=== PATIENT | female | born 1955 | race Caucasian/White ===

== ENCOUNTER → 2017-10-22 | Outpatient (CLI) | payer BC ==
--- NOTE | 2017-10-23 08:00 | MM ---
Reason for exam: additional evaluation requested from abnormal screening. Last mammogram was performed less than 1 month ago. History: Patient is postmenopausal and history of other cancer. Benign excisional biopsy of the left breast, 2013. Physical Findings: Nurse Summary: 0.5cm nodule in the right breast at 3:30 (nurse chanelle). MG Work Up Mamm w CAD LT Spot compression CC, spot compression MLO, ML, and LM view(s) were taken of the left breast. Prior study comparison: October 07, 2017, mammogram, performed at [facility]. September 04, 2013, mammogram. The breast tissue is heterogeneously dense. This may lower the sensitivity of mammography. Finding: There is a 5 mm equal density (isodense), indistinct oval mass located 8 cm from the nipple in the 12 o'clock posterior position of the left breast. These results were verbally communicated with the patient and result sheet given to the patient on 10/22/17. ASSESSMENT: Incomplete: need additional imaging evaluation, BI-RAD 0 RECOMMENDATION: Ultrasound of both breasts. Manage on a clinical basis with regard to palpable abnormality.
--- NOTE | 2017-10-23 08:02 | USB ---
Reason for exam: additional evaluation requested from abnormal screening. History: Patient is postmenopausal and history of other cancer. Benign excisional biopsy of the left breast, 2013. US Breast Workup Limited SIMI Right limited breast ultrasound including focal area of concern, retroareolar and axilla demonstrates a 0.4 x 0.2 x 0.4cm lesion too small to characterize at 2 o'clock. Left complete breast ultrasound includes all four quadrants, the retroareolar region and axilla. Finding demonstrates a 0.2 x 0.2 x 0.2cm lesion too small to characterize at 3 o'clock and a 0.3 x 0.3 x 0.3cm lesion too small to characterize at 9 o'clock. These results were verbally communicated with the patient and result sheet given to the patient on 10/22/17. ASSESSMENT: Probably benign, BI-RAD 3 RECOMMENDATION: Follow-up diagnostic mammogram of both breasts in 6 months.
== END | disposition home or self-care (01) ==
LOC: RADMAMWWP 14:18
PROVIDERS: ATTEND Internal Medicine
DX: R92.8 Other abnormal and inconclusive findings on diagnostic imaging of breast (principal)
CPT/HCPCS: 77065

== ENCOUNTER → 2018-03-21 | Outpatient (CLI) | payer BC ==
[2018-03-21 14:21] LABS: Anisocytosis Slight; Basophils # (A) 0.2 k/uL (0-0.2); Basophils % (A) 1 %; Eosinophils # (A) 0.3 k/uL (0-0.7); Eosinophils % (A) 1 %; HCT 40.5 % (34.0-46.0); HGB 13.5 gm/dL (11.4-16.0); Lymphocytes % (A) 47 %; MCH 29.6 pg (25.0-35.0); MCHC 33.2 g/dL (31.0-37.0); MCV 89.2 fL (80.0-100.0); Mean Platelet Volume 6.8; Monocytes # (A) 0.9 k/uL (0-1.0); Monocytes % (A) 4 %; Neutrophils # (A) 9.2 k/uL (1.3-7.7); Neutrophils % (A) 43 %; Platelet Count 468 k/uL (150-450); RBC 4.54 m/uL (3.80-5.40); RDW 16.6 % (11.5-15.5)
[2018-03-21 14:24] LABS: Lymphocytes # (A) 9.9 k/uL (1.0-4.8)
[2018-03-21 14:39] LABS: ALT 34 U/L (9-52); AST 19 U/L (14-36); Anion Gap 8 mmol/L; Blood Urea Nitrogen 16 mg/dL (7-17); C Reactive Protein 15.3 mg/L (<10.0); Calcium 10.1 mg/dL (8.4-10.2); Carbon Dioxide 30 mmol/L (22-30); Chloride 101 mmol/L (98-107); Creatine Kinase 32 U/L (30-135); Glucose 175 mg/dL (74-99); Potassium 4.5 mmol/L (3.5-5.1); Sodium 139 mmol/L (137-145); Uric Acid 5.3 mg/dL (3.7-7.4)
[2018-03-21 14:52] LABS: T4, Free (Free Thyroxine) 0.98 ng/dL (0.78-2.19); WBC 21.1 k/uL (3.8-10.6)
[2018-03-21 18:31] LABS: Erythrocyte Sedimentation Rate 23 mm/hr (0-20)
[2018-03-21 19:52] LABS: Rheumatoid Factor 7 IU/mL (0-15)
[2018-03-21 19:59] LABS: Vitamin D 25 Hydroxy 35.6 ng/mL (30.0-100.0)
[2018-03-21 20:57] LABS: Cyclic Citrullinated Pep IgG NEGATIVE (NEGATIVE)
[2018-03-22 06:50] LABS: Angiotensin-1 Converting Enz. 46 U/L (8-52)
[2018-03-22 13:45] LABS: HLA B27 POSITIVE
== END | disposition home or self-care (01) ==
LOC: LABWHC1 12:02
PROVIDERS: ATTEND Internal Medicine Hematology & Oncology
DX: G56.03 Carpal tunnel syndrome, bilateral upper limbs (principal); M25.531 Pain in right wrist; M25.532 Pain in left wrist; G56.22 Lesion of ulnar nerve, left upper limb
CPT/HCPCS: 36415; 80048; 82164; 82306; 82550; 84439; 84443; 84450; 84460; 84550; 85025; 85652; 86038; 86140; 86200; 86431; 86812

== ENCOUNTER → 2018-11-13 | Outpatient (CLI) | payer BC ==
--- NOTE | 2018-11-13 12:58 | US ---
EXAMINATION TYPE: US abdomen limited DATE OF EXAM: 11/13/2018 COMPARISON: NONE CLINICAL HISTORY: K82.8 Other specified diseases of gallbladder. RUQ pain, nausea and heartburn, gets worse after eating EXAM MEASUREMENTS: Liver Length: 18.2 cm Gallbladder Wall: 0.1 cm CBD: 0.4 cm Right Kidney: 10.1 x 4.5 x 4.6 cm Pancreas: limited by overlying midline bowel gas Liver: enlarged, mildly heterogeneous Gallbladder: wnl Evidence for sonographic Bustos's sign: no CBD: wnl Right Kidney: 2.8 x 2.3 x 2.8cm cystic area superior pole IMPRESSION: 1. The liver is enlarged and heterogeneous correlate for fatty duration or hepatitis. 2. Right upper pole renal cyst.
--- NOTE | 2018-11-13 15:02 | NM ---
EXAMINATION TYPE: NM hepatobiliary w CCK DATE OF EXAM: 11/13/2018 COMPARISON: Same day Limited abdominal ultrasound HISTORY: Biliary dyskinesia per order. Increased appetite with abdominal pain heartburn and nausea sy mptoms per patient. TECHNIQUE: After the intravenous administration of 4.8 mCi Tc 99m Mebrofenin hepatobiliary scintigrap hy is performed. Immediate images post injection. FINDINGS: There is satisfactory initial accumulation of tracer by the liver. The gallbladder is visualized wit hin 10 minutes. The small bowel activity is not well seen even after 60 minutes. At one hour CCK wa s administered, patient was injected with 1.8 mcg of Kinevac, and gallbladder ejection fraction is ca lculated at 99 %, not deviated from the normal range. Therefore there is no scintigraphic evidence o f cystic or common bile duct obstruction to suggest acute cholecystitis . IMPRESSION: Ejection fraction is 99%, some consider this abnormal or a hyperkinetic response.
== END | disposition home or self-care (01) ==
LOC: RADUSWWP 12:16
PROVIDERS: ATTEND Surgery
DX: N28.1 Cyst of kidney, acquired (principal); R16.0 Hepatomegaly, not elsewhere classified
CPT/HCPCS: 76705; 78227; A9537; J2805

== ENCOUNTER 2018-11-19 08:35 | Day surgery (SDC) | payer BC ==
[2018-11-14 11:51] VITALS: BMI 34.3
[~2018-11-19 08:35] MED LIST: LACTATED RINGERS 1,000 ML IV SCH; LIDOCAINE 1% 20 ML VIAL (10MG/ML) FOR IV START INTRADERMA PRN
[2018-11-19 09:03] VITALS: RESP 16; TEMP 96.8
[2018-11-19 09:06] LABS: Glucose,Whole Blood 164 mg/dL (75-99)
--- NOTE | 2018-11-19 09:22 | P.GSHP ---
History of Present Illness H&P Date: 11/19/18 Chief Complaint: GERD, epigastric pain This is a 63-year-old female who's had complaints of GERD and epigastric pain. Patient presents today for EGD. Past Medical History Past Medical History: Diabetes Mellitus, Hyperlipidemia, Hypertension, Osteoarthritis (OA) Additional Past Medical History / Comment(s): LEUKEMIA, POLYCYTHEMIA- STATES PHLEBOTOMY Q 3 MONTHS. History of Any Multi-Drug Resistant Organisms: None Reported Past Surgical History: Breast Surgery Additional Past Surgical History / Comment(s): BREAST LUMPECTOMY Past Anesthesia/Blood Transfusion Reactions: No Reported Reaction Past Psychological History: No Psychological Hx Reported Smoking Status: Former smoker Past Alcohol Use History: Occasional Additional Past Alcohol Use History / Comment(s): QUIT SMOKING JUNE 2018, SMOKED 1 PPD, SMOKED OFF AND ON SINCE 17 YEARS OLD. Past Drug Use History: None Reported - Past Family History Mother Family Medical History: Cancer Additional Family Medical History / Comment(s): COLON CANCER Medications and Allergies Home Medications Medication Instructions Recorded Confirmed Type Acetaminophen [Tylenol Arthritis] 650 mg PO DIRECTED PRN 11/14/18 11/19/18 History Aspirin [Adult Low Dose Aspirin EC] 81 mg PO DAILY 11/14/18 11/19/18 History Atenolol [Tenormin] 50 mg PO HS 11/14/18 11/19/18 History Atorvastatin [Lipitor] 20 mg PO DAILY 11/14/18 11/19/18 History Calcium Carbonate/Vitamin D3 1 each PO DAILY 11/14/18 11/19/18 History [Oyster Shell-D 250 mg Tablet] Hydrochlorothiazide 25 mg PO DAILY 11/14/18 11/19/18 History Ibuprofen 800 mg PO BID PRN MDD P 11/14/18 11/19/18 History Losartan Potassium [Cozaar] 50 mg PO DAILY 11/14/18 11/19/18 History Multivitamins, Thera [Multivitamin 1 tab PO DAILY 11/14/18 11/19/18 History (formulary)] Pregabalin [Lyrica] 75 mg PO HS 11/14/18 11/19/18 History metFORMIN HCL [Glucophage] 500 mg PO BID 11/14/18 11/19/18 History Allergies Allergy/AdvReac Type Severity Reaction Status Date / Time No Known Allergies Allergy Unverified 11/19/18 08:47 Surgical - Exam Vital Signs Temp Pulse Resp BP Pulse Ox 96.8 F L 73 16 142/84 94 L 11/19/18 08:52 11/19/18 08:52 11/19/18 08:52 11/19/18 08:52 11/19/18 08:52 - General well developed, well nourished, no distress - Eyes PERRL - ENT normal pinna - Neck no masses - Respiratory normal expansion - Cardiovascular Rhythm: regular - Abdomen Abdomen: soft, non tender Results - Labs Abnormal Lab Results - Last 24 Hours (Table) 11/19/18 Range/Units 08:59 POC Glucose (mg/dL) 164 H (75-99) mg/dL Assessment and Plan Assessment: GERD, epigastric pain. We'll perform EGD.
[2018-11-19] MEDS ORDERED: PROPOFOL 10 MG/ML 20 ML VIAL IV ONE (09:23)
--- NOTE | 2018-11-19 09:41 | P.OP ---
Date of Procedure: 11/19/18 Preoperative Diagnosis: Epigastric pain GERD Postoperative Diagnosis: Gastritis Procedure(s) Performed: EGD Anesthesia: MAC Surgeon: Cayden Rodriguez Pathology: other (Antrum) Condition: stable Disposition: PACU Description of Procedure: The patient's placed on the endoscopy table lateral position. She received IV sedation. The gastroscope placed oropharynx and passed in the esophagus and into the stomach. Scope was then placed through the pylorus. The first and second portion of the duodenum appeared normal. Scope was then brought back the antrum this. Mildly inflamed. A biopsies performed. The scope was then retroflexed and remainder the stomach appeared normal. There is no evidence of hiatal hernia. The distal esophagus appeared normal. The proximal esophagus appeared normal. Scope was withdrawn for patient.
[2018-11-19 09:53] VITALS: PULSE 72
[2018-11-19 10:33] VITALS: BP 145/86
== END 2018-11-19 10:24 | disposition home or self-care (01) ==
LOC: ORWHC2ENDO 08:35
PROVIDERS: ATTEND Surgery
DX: K29.50 Unspecified chronic gastritis without bleeding (principal); E11.9 Type 2 diabetes mellitus without complications; E78.5 Hyperlipidemia, unspecified; I10 Essential (primary) hypertension; C95.90 Leukemia, unspecified not having achieved remission; D75.1 Secondary polycythemia; G47.33 Obstructive sleep apnea (adult) (pediatric); K21.9 Gastro-esophageal reflux disease without esophagitis; M19.90 Unspecified osteoarthritis, unspecified site; Z87.891 Personal history of nicotine dependence; Z80.0 Family history of malignant neoplasm of digestive organs; Z79.899 Other long term (current) drug therapy; Z79.84 Long term (current) use of oral hypoglycemic drugs; Z79.82 Long term (current) use of aspirin
CPT/HCPCS: 88305; 43239; J2704

== ENCOUNTER → 2019-04-07 | Outpatient (CLI) | payer BC ==
--- NOTE | 2019-04-07 23:33 | CONS ---
CONSULTATION REASON FOR CONSULTATION: Sleep apnea. 64-year-old female patient, was told by family members and during a recent hospitalization for EGD, she was told by anesthesia that she snores and she quit breathing and she was talking and was quite active during sleep. For that reason, she was asked to come in for sleep evaluation. The patient has been complaining of snoring. She has neck pain. She has been complaining of sleep fragmentation and along with that, she had excessive hypersomnia and sleepiness during the day. Stateline score at 13. She goes to bed. She went to bed somewhere between around 9 p.m., and she would get up from bed around 6 a.m. in the morning. Despite sleeping adequate hours, she was feeling tired and sleepy during the day. Her weight has been stable over this past 1 year. Yet, overall she has gained some weight over the past many years. No history of any falling asleep while driving her car or driving automobile. No history of any motor vehicle accidents because of feeling drowsy or sleepy. PAST MEDICAL HISTORY: 1. Diabetes mellitus. 2. Obesity. 3. Hypertension. 4. Chronic anxiety. 5. Hyperlipidemia. 6. Osteoarthritis. PAST SURGICAL HISTORY: Past surgical history includes cholecystectomy and lumpectomy from the breast. Breast lumpectomy. DRUG ALLERGIES: Not known. OUTPATIENT MEDICATIONS INCLUDE: Metformin, atenolol, Celexa, hydrochlorothiazide, Lipitor, Lyrica, potassium tablets, Ambien as needed, ibuprofen and albuterol inhaler. SOCIAL HISTORY: The patient is a nonsmoker. No history of alcohol. No history of IV drugs. She carries around a 40 pack-year smoking history. She quit smoking around 10 months ago. She drinks 2-3 drinks on a weekly basis. 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 REVIEW OF SYSTEMS: Fourteen-point review of system was done. Positive findings are mentioned in history of present illness. PHYSICAL EXAMINATION: BP is 116/74, pulse 72, respirations 16, temperature 98.2, saturation 95% on room air. Height is 5 feet 2 inches, weight 187. neck size 16 inches. BMI 33.4, Stateline score 13 and weight is 187. General appearance: Calm and comfortable. Head is atraumatic, normocephalic. NECK: Supple. There is no JVD. No goiter or neck masses. Mallampati class IV. LUNGS: Clear to auscultation. HEART: Heart sounds are regular rate and rhythm. Normal S1, S2. No S3, S4. No murmurs. ABDOMEN: Soft, nontender. No organomegaly. Extremities are no edema, no cyanosis or clubbing. Neurologically the patient is alert and oriented x3. No focal neurological deficits. IMPRESSION: 1. Hypersomnia under investigation, rule out obstructive sleep apnea. 2. Snoring. 3. Questionable witnessed apneas. 4. Diabetes mellitus. 5. Obesity with a BMI of 33.4. 6. Hypertension. 7. Chronic anxiety. 8. Hyperlipidemia. 9. Osteoarthritis. PLAN: 1. Encourage weight loss. 2. Implement good sleep hygiene measures. 3. Proceed with a screening polysomnography or home sleep study looking for any significant obstructive sleep apnea and treat accordingly. DARIANA / TENA: [id number] /
== END | disposition home or self-care (01) ==
LOC: SLEEP 13:15
PROVIDERS: ATTEND Internal Medicine
DX: E11.9 Type 2 diabetes mellitus without complications (principal); E66.9 Obesity, unspecified; I10 Essential (primary) hypertension; F41.8 Other specified anxiety disorders; E78.5 Hyperlipidemia, unspecified; M19.90 Unspecified osteoarthritis, unspecified site; R06.83 Snoring; Z68.33 Body mass index [BMI] 33.0-33.9, adult; Z79.84 Long term (current) use of oral hypoglycemic drugs; Z79.1 Long term (current) use of non-steroidal anti-inflammatories (NSAID); Z79.899 Other long term (current) drug therapy
CPT/HCPCS: 99211

== ENCOUNTER → 2019-12-03 | Outpatient (CLI) | payer BC ==
[2019-12-03 09:41] LABS: African American GFR (CKD) >90 (>60 ml/min/1.73 sqM); Blood Urea Nitrogen 15 mg/dL (7-17); Non-African American GFR(CKD) 80 (>60 ml/min/1.73 sqM)
--- NOTE | 2019-12-03 10:32 | CT ---
EXAMINATION TYPE: CT chest w con DATE OF EXAM: 12/03/2019 COMPARISON: HISTORY: GLUTEAL MASS, STAGING CT DLP: 409.9 mGycm Automated exposure control for dose reduction was used. CONTRAST: CT scan of the chest is performed with IV Contrast, patient injected with 100 mL of Isovue 300. FINDINGS: LUNGS: The lungs are grossly clear, there is no concerning parenchymal mass or nodule identified. T here is no pleural effusion or pneumothorax seen. The tracheobronchial tree is patent. MEDIASTINUM: Subcarinal adenopathy measuring 1.2 cm. Right paratracheal adenopathy measuring 1.1 cm. High right paratracheal adenopathy measuring 1.1 cm. Subcentimeter AP window lymph nodes. No perica rdial effusion is seen. Thoracic aorta is of normal caliber. The heart is not enlarged. UPPER ABDOMEN: Fatty liver. Right renal cyst. Cholecystectomy changes. Periportal adenopathy measurin g up to 1.8 cm. Multiple small subcentimeter para-aortic lymph nodes. OTHER: Multiple bilateral axillary lymph nodes measuring up to 1.2 cm. IMPRESSION: 1. No evidence of pulmonary nodule or mass. 2. There is evidence of axillary, mediastinal and periportal adenopathy.
--- NOTE | 2019-12-03 14:28 | NM ---
EXAMINATION TYPE: NM bone scan whole body DATE OF EXAM: 12/03/2019 COMPARISON: NONE HISTORY: D48.1 gluteal mass Delayed whole-body scanning was performed following the injection of 20.3 mCi Tc 99m MDP. Images acq uired 3 hours post injection. FINDINGS: There are ill-defined areas of calvarial uptake. Correlate with the plain film radiographs. Degenerat dariel uptake of the cervical spine greatest on the left. Degenerative uptake of the thoracic and lumbar spine as well as the shoulders, wrists and knees. IMPRESSION: There are ill-defined areas of calvarial uptake. Correlate with the plain film radiographs. Otherwise there is degenerative uptake identified.
== END | disposition home or self-care (01) ==
LOC: RADCTMAIN 08:25
PROVIDERS: ATTEND Surgery Surgical Oncology
DX: R59.0 Localized enlarged lymph nodes (principal); D48.1 Neoplasm of uncertain behavior of connective and other soft tissue
CPT/HCPCS: 82565; 84520; 71260; 78306; A9503; Q9967

== ENCOUNTER → 2020-02-09 | Outpatient (CLI) | payer BC ==
[2020-02-09 13:03] LABS: Albumin 4.5 g/dL (3.5-5.0); Calcium 10.1 mg/dL (8.4-10.2); Potassium 3.9 mmol/L (3.5-5.1); Total Bilirubin 0.5 mg/dL (0.2-1.3); Total Protein 7.5 g/dL (6.3-8.2)
[2020-02-09 13:18] LABS: Anisocytosis Moderate; Basophils # (A) 0.2 k/uL (0-0.2); Basophils % (A) 1 %; Eosinophils # (A) 0.7 k/uL (0-0.7); Eosinophils % (A) 3 %; HCT 39.6 % (34.0-46.0); HGB 11.8 gm/dL (11.4-16.0); Hypochromasia Marked; INR 0.9 (<1.2); Lymphocytes % (A) 56 %; MCH 21.9 pg (25.0-35.0); MCHC 29.8 g/dL (31.0-37.0); MCV 73.5 fL (80.0-100.0); Mean Platelet Volume 6.9; Microcytosis Marked; Monocytes # (A) 0.9 k/uL (0-1.0); Monocytes % (A) 3 %; Neutrophils # (A) 8.8 k/uL (1.3-7.7); Neutrophils % (A) 33 %; Partial Thromboplastin Time 23.2 sec (22.0-30.0); Platelet Count 421 k/uL (150-450); Poikilocytosis Slight; Prothrombin Time 9.7 sec (9.0-12.0); RBC 5.38 m/uL (3.80-5.40); RDW 20.5 % (11.5-15.5); WBC 26.6 k/uL (3.8-10.6)
--- NOTE | 2020-02-09 23:16 | CT ---
EXAMINATION TYPE: CT chest w con DATE OF EXAM: 02/09/2020 COMPARISON: 12/03/2019 HISTORY: Neoplasm of uncertain behavior of connective and other soft tissue CT DLP: 399.9 mGycm, Automated exposure control for dose reduction was used. CONTRAST: Performed injected with 80 mL of Isovue 300. TECHNIQUE: Axial images were obtained at 5 mm thick sections. Reconstructed images are reviewed on located within [facility] computer in the coronal plane. FINDINGS: Portion of the thyroid visualized is normal. Multiple bilateral axillary lymph nodes are pr esent. Largest on the left measures 1.5 cm transverse. With additional prominent lymph node close to the axilla measuring 1.2 cm. There are additional abnormal lymph nodes in the pretracheal space. Pretracheal lymph node measures 1 .6 cm with an adjacent 1.3 cm lymph node. A 1.2 cm lymph node is at the level of the aortic arch in t he pretracheal space. There is a 1.4 cm lymph node in the pretracheal space at the level of the perry a. Subcarinal lymph node measures 1.0 cm. Enlarged hilar adenopathy is not identified. No suspicious lung nodules or focal infiltrates are present. Hhe ascending aorta diameter at the level of the main pulmonary artery is 3.9 cm. The main pulmona ry artery diameter at the bifurcation is 2.[address] sections are obtained through the upper abdomen. There is a cyst on the anterior superior pole right kidney measuring 3.1 cm. Upper abdomen is otherwise unremarkable. IMPRESSIONS: 1. Enlarging axillary and mediastinal adenopathy.
== END | disposition home or self-care (01) ==
LOC: RADCTMAIN 12:18
PROVIDERS: ATTEND Surgery Surgical Oncology
DX: R59.0 Localized enlarged lymph nodes (principal); D48.1 Neoplasm of uncertain behavior of connective and other soft tissue
CPT/HCPCS: 80053; 85025; 85610; 85730; 71260; 36415; Q9967

== ENCOUNTER → 2020-02-13 | Outpatient (CLI) | payer BC ==
--- NOTE | 2020-02-13 14:56 | MR ---
EXAMINATION TYPE: MR pelvis wo/w con DATE OF EXAM: 02/13/2020 COMPARISON: HISTORY: ft tissue tumor on left side, posterior and superior pelvis. Marked area of interest CONTRAST: Standard multiplanar, multisequence MRI departmental protocol utilizing 7.5 mL intravenous Gadavist g adolinium contrast. Within the subcutaneous fat over the posterior lateral left pelvis there is a rounded mass that measu res 8 x 6.5 cm. There are few internal septations. This has high signal on the STIR images and low si gnal on T1 images consistent with fluid. There is a very thin rim of enhancement on the contrast imag es. There is no internal enhancement. The bony structures appear intact. There is no free fluid in the pelvis. There is no evidence of pelv ic mass. Bladder distends smoothly. Uterus is anteverted. There is 2 cm rounded focus anterior uterin e fundus consistent with a fibroid. There is 6 mm rounded focus of enhancement on the anterior lower urinary bladder wall. This area has fluid signal equal to urine on the T2 sagittal images. This appea rs to be contrast in the urinary bladder near the ureteral orifice. IMPRESSION: subcutaneous mass on the left side of the pelvis has features of a septated cyst. This could be chron ic hematoma or seroma. This could be confirmed by ultrasound if clinically indicated.
== END | disposition home or self-care (01) ==
LOC: RADMRIMAIN 09:46
PROVIDERS: ATTEND Surgery Surgical Oncology
DX: N94.89 Other specified conditions associated with female genital organs and menstrual cycle (principal); D48.1 Neoplasm of uncertain behavior of connective and other soft tissue
CPT/HCPCS: 72197; A9585

== ENCOUNTER → 2020-05-13 | Outpatient (CLI) | payer BC, MEDICARE ==
--- NOTE | 2020-05-13 16:40 | MR ---
MR pelvis with and without contrast HISTORY: Pain, D 48.1 Multiplanar multisequence imaging, postcontrast images obtained through the pelvis following 7.5 cc G adavist IV. Correlation to prior pelvic MRI dated 02/13/2020 At the site of patient's previously identified mass in the left flank subcutaneous fat there is a T1 intermediate, T2 bright collection measuring approximately 14 cm in AP dimension by 5.7 cm in transve rse dimension by 9.3 cm in cephalad to caudal dimension. There are scattered areas of signal void thr oughout this area which is superficial to the musculature and just deep to the skin possibly indicati ve of air. Some surrounding edematous changes are present within the soft tissues. Post contrast imag es show rim enhancement. The ovarian lesion in the left hemipelvis with dependent intermediate signal, nondependent high signa l on T1-weighted images shows a similar appearance and may represent a dermoid or possibly hemorrhagi c cyst. Probable fibroids noted within the pelvis. No free fluid noted within the pelvis. Some mildly prominent nodes are present within the inguinal regions similar to prior exam. Bone marrow signal is remarkable for a focus of increased signal on T2-weighted sequences, intermediate signal on T1, enha ncement by contrast within the L5 vertebral body to the right of midline. Posterior right ilium also shows some increased signal on STIR images which is asymmetric, intermediate signal on T1 with enhanc ement following contrast administration. No other significant interval change. IMPRESSION: Correlate for postoperative collection, possible abscess formation. There may be metastat ic disease to bone, bone scan, dedicated MRI may be of benefit.
== END | disposition home or self-care (01) ==
LOC: RADMRIMAIN 11:55
PROVIDERS: ATTEND Surgery Surgical Oncology
DX: D48.1 Neoplasm of uncertain behavior of connective and other soft tissue (principal); C49.9 Malignant neoplasm of connective and soft tissue, unspecified; Z98.890 Other specified postprocedural states
CPT/HCPCS: 72197

== ENCOUNTER → 2020-05-16 | Outpatient (CLI) | payer MEDICARE, BC ==
--- NOTE | 2020-05-16 15:20 | CT ---
EXAMINATION TYPE: CT chest w con DATE OF EXAM: 05/16/2020 COMPARISON: CT chest February 09, [address] December 03, 2019 HISTORY: Possible mets to chest, history of pelvic mass. CT DLP: 385.7 mGycm. Automated Exposure Control for Dose Reduction was Utilized. TECHNIQUE: CT scan of the thorax is performed following with IV Contrast, patient injected with 80ml mL of Isovue 300. FINDINGS: LUNGS: The lungs are grossly clear, there is no new concerning parenchymal mass or nodule identified. There is no pleural effusion or pneumothorax seen. The tracheobronchial tree is patent. MEDIASTINUM: There are stable prominent and slightly enlarged thoracic lymph node. For reference ther e is slightly enlarged 1.5 x 1.2 cm right paratracheal lymph node axial image 14 unchanged from prior 2 studies. For reference prominent AP window and pericarinal lymph nodes axial image 23 are stable. Stable prominent borderline enlarged anterior right hilar lymph node axial image 25. No enlarging no josh clearly seen. No cardiomegaly or pericardial effusion is seen. Coronary artery calcification red emonstrated. Ascending aorta measures up to 3.9 cm in diameter axial image 25 not significantly diggs ed from prior. OTHER: Stable prominent borderline enlarged bilateral axillary lymph nodes. Cholecystectomy clips red emonstrated. Partially exophytic thin-walled 2.5 cm cyst anteriorly upper pole right kidney measures 58 unchanged from prior studies.. IMPRESSION: Stable nonspecific prominent and slightly enlarged thoracic lymph nodes as detailed above .
== END | disposition home or self-care (01) ==
LOC: RADCTMAIN 13:01
PROVIDERS: ATTEND Surgery Surgical Oncology
DX: R59.9 Enlarged lymph nodes, unspecified (principal); D48.1 Neoplasm of uncertain behavior of connective and other soft tissue; C49.9 Malignant neoplasm of connective and soft tissue, unspecified
CPT/HCPCS: 82565; 84520; 71260; 36415; Q9967

== ENCOUNTER → 2020-08-17 | Outpatient (CLI) | payer BC, MEDICARE ==
--- NOTE | 2020-08-18 05:31 | MR ---
EXAMINATION TYPE: MR pelvis wo/w con DATE OF EXAM: 08/17/2020 COMPARISON: HISTORY: Neoplasm of uncertain behavior of soft tissue, pain CONTRAST: Standard multiplanar, multisequence MRI departmental protocol utilizing 8 mL intravenous Gadavist mahogany olinium contrast. Uterus is anteverted. There is 1.8 cm low signal mass on the anterior wall of the uterine fundus cons istent with a fibroid. Endometrium is not thickened. There is a second 1 cm fibroid on the anterior u terine fundus. There is a 6 x 4.7 cm rounded mass in the pelvis posterior to the uterus on the left side. This has t riple fluid level consistent with complex cyst. There is an adjacent smaller cyst that measures 1.5 c m on the posterior aspect. The wall of the mass is relatively thin. There is no free fluid in the pelvis. I see no evidence of pelvic lymphadenopathy. The bony pelvis is intact. The hip joints are intact. IMPRESSION: Complex cystic mass in the left adnexal region consistent with ovarian cyst with hemorrhage. This radha ears unchanged in size and signal pattern compared to the previous exam. Mass also stable compared to 02/13/2020 exam. Uterine fibroids appears stable compared to old exam.
== END ==
LOC: RADMRIMAIN 12:00
PROVIDERS: ATTEND Surgery Surgical Oncology
DX: D48.1 Neoplasm of uncertain behavior of connective and other soft tissue (principal); D25.9 Leiomyoma of uterus, unspecified; N83.8 Other noninflammatory disorders of ovary, fallopian tube and broad ligament
CPT/HCPCS: 72197; A9585

== ENCOUNTER → 2020-09-13 | Outpatient (CLI) | payer BC, MEDICARE ==
--- NOTE | 2020-09-13 15:01 | CT ---
EXAMINATION TYPE: CT chest w con DATE OF EXAM: 09/13/2020 COMPARISON: CT chest 05/16/2020 HISTORY: Soft tissue sarcoma-pelvis CT DLP: 405.2 mGycm Automated exposure control for dose reduction was used. CONTRAST: CT scan of the chest is performed with IV Contrast, patient injected with 100 ml mL of Isovue 300. FINDINGS: Thyroid gland is stable in appearance LUNGS: The lungs are grossly clear, there is no concerning parenchymal mass or nodule identified. T here is no pleural effusion or pneumothorax seen. The tracheobronchial tree is patent. MEDIASTINUM: There are retrocaval pretracheal enlarged nodes, dominant node now measures approximatel y 19 mm in short axis and on prior exam measured approximately 16 mm. Prevascular nodes are again see n similar to prior, subcarinal soft tissue fullness is similar. No evident change and right hilar haider nopathy, left hilar nodes are somewhat more conspicuous. AORTA: No additional significant abnormality is seen. OTHER: Left axillary adenopathy is again noted, right axillary nodes show similar appearance. No jessika dent supraclavicular adenopathy. Cortical cyst is associated with the right kidney as on prior. Scatt ered calcifications in the spleen likely represent old granulomatous disease. Patient is post cholecy stectomy. Portal adenopathy is also present similar to prior IMPRESSION: There is mediastinal and left axillary, portal adenopathy as described.
== END | disposition home or self-care (01) ==
LOC: RADCTMAIN 11:07
PROVIDERS: ATTEND Surgery Surgical Oncology
DX: R59.0 Localized enlarged lymph nodes (principal)
CPT/HCPCS: 71260; Q9967

== ENCOUNTER 2020-10-21 06:37 | Day surgery (SDC) | payer BC, MEDICARE ==
[2020-10-19 10:45] VITALS: BMI 32.5
[~2020-10-21 06:37] MED LIST changes: -LIDOCAINE 1% 20 ML VIAL (10MG/ML) FOR IV START INTRADERMA PRN
[2020-10-21] MEDS ORDERED: LACTATED RINGERS 1,000 ML IV ONE ×2 (07:08)
[2020-10-21 07:15] VITALS: RESP 16; TEMP 98.1
[2020-10-21] MEDS ORDERED: LIDOCAINE 1% (10MG/ML) FOR IV START INTRADERMA ONE (07:20)
[2020-10-21 07:22] LABS: Glucose,Whole Blood 160 mg/dL (75-99)
[2020-10-21] MEDS ORDERED: PROPOFOL 10 MG/ML 20 ML VIAL IV ONE (07:34)
[2020-10-21] MEDS ORDERED: LIDOCAINE 1% INJ 10MG/ML (20 ML MDV) ONE (07:34)
--- NOTE | 2020-10-21 07:56 | P.PCN ---
Date of Procedure: 10/21/20 Procedure(s) Performed: Brief history: Patient is a pleasant 65-year-old white female scheduled for an elective upper endoscopy as well as colonoscopy as a part of evaluation of iron deficiency anemia. She denies any GI symptoms. Procedure performed: Esophagogastroduodenoscopy with biopsy Colonoscopy with snare polypectomy Preoperative diagnosis: Iron deficiency anemia Anesthesia: [facility] [place] Procedure: After informed consent was obtained from the patient was brought into the endoscopy unit and IV sedation was administered by anesthesia under continuous monitoring. Initially upper endoscopy was done. The Olympus GF 160 video endoscope was inserted inserted into the mouth and esophagus intubated without any difficulty and was gradually advanced into the stomach and duodenum and carefully examined. The bulb and second part of the duodenum appeared normal. Biopsies were done from the duodenum to rule out celiac disease. The scope was then withdrawn into the stomach adequately insufflated with air and upon careful examination the antrum had mild gastritis and biopsies were done from this ar ea. The body, cardia and fundus appeared normal. The scope was then withdrawn into the esophagus. The GE junction was located at 40 cm to the incisors. It appeared regular with no erythema erosions or ulcerations. Rest of the esophagus appeared normal. Patient tolerated the procedure well. At this time the patient continued to remain sedation. Initial digital rectal examination was normal. Olympus CF 160 video colonoscope was then inserted into the rectum and gradually advanced to the cecum without any difficulty. Careful examination was performed as the scope was gradually being withdrawn. The prep was excellent. The cecum, ascending colon, transverse colon, descending colon, sigmoid colon appeared normal. In the rectum there was a 5 mm sessile polyp that was removed by snare polypectomy. Scattered sigmoid diverticulosis seen. Retroflexion was performed in the rectum and no lesions were noted. Patient tolerated the procedure well. Impression: 1. Upper endoscopy revealed mild antral gastritis but no evidence of esophagitis or peptic ulcer disease 2. Colonoscopy revealed a 5 mm distal rectal polyp status post polypectomy and scattered sigmoid diverticulosis Recommendations: Findings of this examination were discussed with the patient as well as her family. She was advised to follow with the biopsy results. If the biopsy shows an adenoma she can have a repeat colonoscopy in 5 years. She will continue with iron supplements and if she has persistent iron deficiency anemia she can have a small bowel capsule endoscopy as a new future.
[2020-10-21 08:15] VITALS: BP 123/82; PULSE 73
== END 2020-10-21 08:52 | disposition home or self-care (01) ==
LOC: ORWHC2ENDO 06:37
PROVIDERS: ATTEND Internal Medicine Gastroenterology
DX: D50.9 Iron deficiency anemia, unspecified (principal); D12.8 Benign neoplasm of rectum; K31.89 Other diseases of stomach and duodenum; E78.5 Hyperlipidemia, unspecified; I10 Essential (primary) hypertension; J45.909 Unspecified asthma, uncomplicated; E11.9 Type 2 diabetes mellitus without complications; K21.9 Gastro-esophageal reflux disease without esophagitis; Z79.899 Other long term (current) drug therapy; Z79.4 Long term (current) use of insulin
CPT/HCPCS: 88305; 45385; 43239; J2001; J2704

== ENCOUNTER 2020-12-26 14:14 | Emergency (ER) | payer BC, MEDICARE ==
[2020-12-26 14:19] VITALS: RESP 18
[2020-12-26] MEDS ORDERED: SODIUM CHLORIDE 0.9% 500 ML 500 ML IV STA (15:04)
[2020-12-26] MEDS ORDERED: MECLIZINE 12.5 MG TAB PO STA (15:04)
[2020-12-26] MEDS ORDERED: CARBAMIDE PEROXIDE 6.5% DROPS 15 ML BTL RIGHT EAR STA (15:06)
--- NOTE | 2020-12-26 15:11 | ED ---
Dizziness HPI - General Chief Complaint: Dizziness Stated Complaint: Dizziness Source: patient, RN notes reviewed, old records reviewed Mode of arrival: wheelchair Limitations: no limitations - History of Present Illness Initial Comments: 65-year-old white female, alert and oriented 4, presents to the emergency room with complaints of dizziness that started around 6:30 last night. Patient states that she feels like when she walks that she is unsteady. It is intermittent and worsens with exertion or position changes and bending over. She states that she does have a history of wax buildup in her ears feels like the right ear is painful. She denies any fevers, nausea vomiting or diarrhea. She has a history of asthma, sarcoma, diabetes, hypertension and surgical histo ry of cholecystectomy. At this time patient does not have the symptoms and is 0 out of 10 pain. MD Complaint: dizziness, difficulty walking -: days(s) (1, started at about 6:30 last night) Timing: sudden onset Description: lightheadedness, off-balance History of Same: No History of Trauma: No Improves With: remaining still Worsens With: movement, position, exertion Associated Symptoms: weakness - Related Data Home Medications Medication Instructions Recorded Confirmed Aspirin [Adult Low Dose Aspirin EC] 81 mg PO DAILY 11/14/18 12/26/20 Atorvastatin [Lipitor] 20 mg PO HS 11/14/18 12/26/20 Losartan Potassium [Cozaar] 50 mg PO DAILY 11/14/18 12/26/20 Multivitamins, Thera [Multivitamin 1 tab PO DAILY 11/14/18 12/26/20 (formulary)] Pregabalin [Lyrica] 75 mg PO HS 11/14/18 12/26/20 hydroCHLOROthiazide 25 mg PO HS 11/14/18 12/26/20 Citalopram Hydrobromide [CeleXA] 40 mg PO HS 11/27/18 12/26/20 Zinc Sulfate [Orazinc] 220 mg PO DAILY 08/18/20 12/26/20 Insulin Glargine [Lantus] 22 unit SQ HS 09/13/20 12/26/20 Allopurinol [Zyloprim] 100 mg PO DAILY 10/19/20 12/26/20 Glimepiride [Amaryl] 2 mg PO BID 12/26/20 12/26/20 Ibuprofen [Motrin Ib] 800 mg PO Q8H PRN 12/26/20 12/26/20 Omeprazole [PriLOSEC] 20 mg PO HS 12/26/20 12/26/20 Zolpidem [Ambien] 5 mg PO HS PRN 12/26/20 12/26/20 atenoloL [Atenolol] 50 mg PO HS 12/26/20 12/26/20 Previous Rx's Medication Instructions Recorded Cephalexin [Keflex] 500 mg PO BID 5 Days #10 cap 12/26/20 Meclizine [Antivert] 25 mg PO TID PRN 5 Days #15 tab 12/26/20 Allergies Allergy/AdvReac Type Severity Reaction Status Date / Time No Known Allergies Allergy Verified 12/26/20 15:04 Review of Systems ROS Statement: Those systems with pertinent positive or pertinent negative responses have been documented in the HPI. ROS Other: All systems not noted in ROS Statement are negative. 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 POSSIBLE SLEEP APNEA-FURTHER TESTING SCHEDULED. LOW IRON LEVEL S History of Any Multi-Drug Resistant Organisms: None Reported Past Surgical History: Breast Surgery, Cholecystectomy Additional Past Surgical History / Comment(s): LEFT BREAST BIOPSY, REMOVAL MALIGNANT MASS FROM LT PELVIS, REPAIR FOR PRIOR PELVIS SX, Additional Past Anesthesia/Blood Transfusion Reaction / Comment(s): QUIT BREATHING DURING LAST SCOPE, UNSURE IF IT WAS FROM SLEEP APNEA OR ANESTHESIA ISSUE Past Psychological History: Anxiety Smoking Status: Former smoker Past Alcohol Use History: Occasional Past Drug Use History: None Reported - Past Family History Mother Family Medical History: Coronary Artery Disease (CAD) General Exam Limitations: no limitations General appearance: alert, in no apparent distress Head exam: Present: atraumatic, normocephalic, normal inspection Eye exam: Present: normal appearance, PERRL, EOMI, conjunctival injection (Right eye ). Absent: scleral icterus, periorbital swelling, periorbital tenderness Pupils: Present: normal accommodation ENT exam: Present: normal oropharynx, mucous membranes moist, normal external ear exam, other (Right ear with dark wax impaction, unable to visualize TM) Neck exam: Present: normal inspection, full ROM. Absent: tenderness, meningismus, lymphadenopathy, thyromegaly Respiratory exam: Present: normal lung sounds bilaterally. Absent: respiratory distress, wheezes, rales, rhonchi, stridor, chest wall tenderness, accessory muscle use Cardiovascular Exam: Present: regular rate, normal rhythm, normal heart sounds. Absent: systolic murmur, diastolic murmur, rubs, gallop, clicks, JVD GI/Abdominal exam: Present: soft, normal bowel sounds. Absent: distended, tenderness, guarding, rebound, rigid Extremities exam: Present: normal inspection, full ROM, normal capillary refill. Absent: tenderness, pedal edema, joint swelling, calf tenderness Back exam: Present: normal inspection, full ROM. Absent: tenderness, CVA tenderness (R), CVA tenderness (L), muscle spasm, paraspinal tenderness, vertebral tenderness Neurological exam: Present: alert, oriented X3, CN II-XII intact Psychiatric exam: Present: normal affect, normal mood Skin exam: Present: warm, dry, intact, normal color. Absent: rash, cyanosis, diaphoretic, erythema, petechiae, pallor, mottled Course Vital Signs 12/26/20 12/26/20 12/26/20 14:16 16:10 17:56 Temperature 98.2 F 97.6 F Pulse Rate 71 63 73 Respiratory 18 18 18 Rate Blood Pressure 120/82 133/69 161/98 O2 Sat by Pulse 96 93 L 95 Oximetry EKG Findings - EKG Results: EKG: WNL, sinus rhythm (Ventricular rate of 63, TX interval 0.158, QRS of 0.86, QTC of 0.470) Procedures - Ear Wax Removal Right Ear Cerumenolytic Used: Cerumenex Ear Canal Irrigated by: RN, other (inpatient pharmacist) Ear Canal Irrigated With: warm saline with H2O2 using syringe/angiocath Ear Canal(s) Curetted: plastic scoops Results: Re-examined: some cerumen remains, removal reattempted TM Visible: TM(s) intact, normal appearance Patient Tolerated Procedure: well Complications: no problems Medical Decision Making - Medical Decision Making WBC count is 30.4, patient consistent high with a count of 20.1 on August 2020 and 33.4 in June 2020 due to CLL. Troponin is negative at 0.012, glucose is 110. Urine shows heart leukocyte esterase, 46 wbc's, negative for ketones or blood. She'll be treated with 1 g of Rocephin and prescribed Keflex 500 mg twice a day for 5 days. She was given Antivert and Her right ear was irrigated which improved her symptoms. She was able to ambulate for the nurse at discharge with a steady gait. She'll be discharged home to follow up with her primary care doctor and directed to return if worsening symptoms. case discussed with Dr. Khan - Lab Data Result diagrams: 12/26/20 15:32 12/26/20 15:32 Lab Results 12/26/20 12/26/20 12/26/20 Range/Units 15:00 15:32 15:32 WBC 30.4 H (3.8-10.6) k/uL RBC 5.39 (3.80-5.40) m/uL Hgb 14.9 (11.4-16.0) gm/dL Hct 46.1 H (34.0-46.0) % MCV 85.5 (80.0-100.0) fL MCH 27.6 (25.0-35.0) pg MCHC 32.3 (31.0-37.0) g/dL RDW 17.4 H (11.5-15.5) % Plt Count 367 (150-450) k/uL MPV 7.7 Neutrophils % (Manual) 26 % Lymphocytes % (Manual) 68 % Monocytes % (Manual) 3 % Eosinophils % (Manual) 2 % Neutrophils # (Manual) 7.90 H (1.3-7.7) k/uL Lymphocytes # (Manual) 20.67 H (1.0-4.8) k/uL Monocytes # (Manual) 0.91 (0-1.0) k/uL Eosinophils # (Manual) 0.61 (0-0.7) k/uL Nucleated RBCs 0 (0-0) /100 WBC Differential Comment Manual Slide Review Performed Anisocytosis Slight Sodium 139 (137-145) mmol/L Potassium 3.9 (3.5-5.1) mmol/L Chloride 99 (98-107) mmol/L Carbon Dioxide 32 H (22-30) mmol/L Anion Gap 8 mmol/L BUN 28 H (7-17) mg/dL Creatinine 1.24 H (0.52-1.04) mg/dL Est GFR (CKD-EPI)AfAm 53 (>60 ml/min/1.73 sqM) Est GFR (CKD-EPI)NonAf 46 (>60 ml/min/1.73 sqM) Glucose 110 H (74-99) mg/dL Calcium 9.8 (8.4-10.2) mg/dL Total Bilirubin 0.3 (0.2-1.3) mg/dL AST 24 (14-36) U/L ALT 19 (4-34) U/L Alkaline Phosphatase 130 H (38-126) U/L Troponin I (0.000-0.034) ng/mL Total Protein 7.0 (6.3-8.2) g/dL Albumin 4.2 (3.5-5.0) g/dL Urine Color Yellow Urine Appearance Clear (Clear) Urine pH 5.5 (5.0-8.0) Ur Specific [place] 1.018 (1.001-1.035) Urine Protein Negative (Negative) Urine Glucose (UA) Negative (Negative) Urine Ketones Negative (Negative) Urine Blood Negative (Negative) Urine Nitrite Negative (Negative) Urine Bilirubin Negative (Negative) Urine Urobilinogen <2.0 (<2.0) mg/dL Ur Leukocyte Esterase Large H (Negative) Urine RBC 3 (0-5) /hpf Urine WBC 46 H (0-5) /hpf Ur Squamous Epith Cells 1 (0-4) /hpf Hyaline Casts 5 H (0-2) /lpf Urine Mucus Rare H (None) /hpf 12/26/20 Range/Units 15:32 WBC (3.8-10.6) k/uL RBC (3.80-5.40) m/uL Hgb (11.4-16.0) gm/dL Hct (34.0-46.0) % MCV (80.0-100.0) fL MCH (25.0-35.0) pg MCHC (31.0-37.0) g/dL RDW (11.5-15.5) % Plt Count (150-450) k/uL MPV Neutrophils % (Manual) % Lymphocytes % (Manual) % Monocytes % (Manual) % Eosinophils % (Manual) % Neutrophils # (Manual) (1.3-7.7) k/uL Lymphocytes # (Manual) (1.0-4.8) k/uL Monocytes # (Manual) (0-1.0) k/uL Eosinophils # (Manual) (0-0.7) k/uL Nucleated RBCs (0-0) /100 WBC Differential Comment Manual Slide Review Anisocytosis Sodium (137-145) mmol/L Potassium (3.5-5.1) mmol/L Chloride (98-107) mmol/L Carbon Dioxide (22-30) mmol/L Anion Gap mmol/L BUN (7-17) mg/dL Creatinine (0.52-1.04) mg/dL Est GFR (CKD-EPI)AfAm (>60 ml/min/1.73 sqM) Est GFR (CKD-EPI)NonAf (>60 ml/min/1.73 sqM) Glucose (74-99) mg/dL Calcium (8.4-10.2) mg/dL Total Bilirubin (0.2-1.3) mg/dL AST (14-36) U/L ALT (4-34) U/L Alkaline Phosphatase (38-126) U/L Troponin I <0.012 (0.000-0.034) ng/mL Total Protein (6.3-8.2) g/dL Albumin (3.5-5.0) g/dL Urine Color Urine Appearance (Clear) Urine pH (5.0-8.0) Ur Specific [place] (1.001-1.035) Urine Protein (Negative) Urine Glucose (UA) (Negative) Urine Ketones (Negative) Urine Blood (Negative) Urine Nitrite (Negative) Urine Bilirubin (Negative) Urine Urobilinogen (<2.0) mg/dL Ur Leukocyte Esterase (Negative) Urine RBC (0-5) /hpf Urine WBC (0-5) /hpf Ur Squamous Epith Cells (0-4) /hpf Hyaline Casts (0-2) /lpf Urine Mucus (None) /hpf Disposition Clinical Impression: Vertigo, Urinary tract infection Disposition: HOME SELF-CARE Condition: Fair Instructions (If sedation given, give patient instructions): Urinary Tract Infection in Women (ED), Dizziness (ED) Prescriptions: Meclizine [Antivert] 25 mg PO TID PRN 5 Days #15 tab PRN Reason: Vertigo Cephalexin [Keflex] 500 mg PO BID 5 Days #10 cap Is patient prescribed a controlled substance at d/c from ED?: No Referrals: Carlene Cook MD [Primary Care Provider] - 1-2 days Time of Disposition: 17:46
[2020-12-26 15:52] LABS: Albumin 4.2 g/dL (3.5-5.0); Calcium 9.8 mg/dL (8.4-10.2); Potassium 3.9 mmol/L (3.5-5.1); Total Bilirubin 0.3 mg/dL (0.2-1.3)
[2020-12-26 15:56] LABS: Appearance,Urine Clear (Clear); Bilirubin,Urine Negative (Negative); Blood,Urine Negative (Negative); Color,Urine Yellow; Glucose,Urine (UA) Negative (Negative); Hyaline Casts,Urine 5 /lpf (0-2); Ketones,Urine Negative (Negative); Leukocyte Esterase,Urine Large (Negative); Mucus,Urine Rare /hpf; Nitrite,Urine Negative (Negative); PH, Urine 5.5 (5.0-8.0); Protein,Urine Negative (Negative); RBC,Urine 3 /hpf (0-5); Specific Gravity,Urine 1.018 (1.001-1.035); Squamous Epithelial Cell,Urine 1 /hpf (0-4); Urobilinogen,Urine <2.0 mg/dL (<2.0); WBC,Urine 46 /hpf (0-5)
[2020-12-26 16:04] LABS: Anisocytosis Slight; HCT 46.1 % (34.0-46.0); HGB 14.9 gm/dL (11.4-16.0); MCH 27.6 pg (25.0-35.0); MCHC 32.3 g/dL (31.0-37.0); MCV 85.5 fL (80.0-100.0); Mean Platelet Volume 7.7; Platelet Count 367 k/uL (150-450); RBC 5.39 m/uL (3.80-5.40); RDW 17.4 % (11.5-15.5); WBC 30.4 k/uL (3.8-10.6)
[2020-12-26 16:24] LABS: Eosinophils # (M) 0.61 k/uL (0-0.7); Nucleated Red Blood Cells 0 /100 WBC (0-0)
[2020-12-26] MEDS ORDERED: cefTRIAXone IN SWFI 1,000 MG/10 ML SYRINGE IVP STA (16:44)
[2020-12-26 17:06] LABS: Lymphocytes # (M) 20.67 k/uL (1.0-4.8); Neutrophils % (M) 26 %
[2020-12-26 17:07] LABS: Monocytes # (M) 0.91 k/uL (0-1.0); Total Cells Counted 300
[2020-12-26 17:58] VITALS: BP 161/98; PULSE 73; TEMP 97.6
== END 2020-12-26 17:56 | disposition home or self-care (01) ==
LOC: EC 14:14
DX: R42 Dizziness and giddiness (principal); N39.0 Urinary tract infection, site not specified; E11.9 Type 2 diabetes mellitus without complications; I10 Essential (primary) hypertension; J45.909 Unspecified asthma, uncomplicated; E78.5 Hyperlipidemia, unspecified; K21.9 Gastro-esophageal reflux disease without esophagitis; F41.9 Anxiety disorder, unspecified; Z79.1 Long term (current) use of non-steroidal anti-inflammatories (NSAID); Z79.4 Long term (current) use of insulin; Z79.82 Long term (current) use of aspirin; Z79.899 Other long term (current) drug therapy; Z87.891 Personal history of nicotine dependence; Z82.49 Family history of ischemic heart disease and other diseases of the circulatory system; Z85.3 Personal history of malignant neoplasm of breast; Z90.49 Acquired absence of other specified parts of digestive tract
CPT/HCPCS: 36415; 93005; 80053; 84484; 85025; 81001; 87086; 96374; 99284; J0696

== ENCOUNTER → 2021-01-04 | Outpatient (CLI) | payer BC, MEDICARE ==
--- NOTE | 2021-01-05 05:31 | MR ---
EXAMINATION TYPE: MR pelvis wo/w con DATE OF EXAM: 01/04/2021 COMPARISON: 08/17/2020 HISTORY: Follow up study, pelvis mass removed. CONTRAST: Standard multiplanar, multisequence MRI departmental protocol utilizing 9 mL intravenous Gadavist mahogany olinium contrast. There is a 5 cm x 6 cm thick walled cystic mass in the pelvis on the left side. This has internal flu id fluid level. The posterior aspect has fluid signal and the anterior aspect has intermediate signal on the T2 images that could be blood clot and debris. I see no free fluid in the pelvis. The bladder distends smoothly. There is no sign of inguinal hernia. There are multiple inguinal lymph nodes that measure up to 2.4 cm in maximum dimension bilaterally. The bony structures appear intact. Lower lumb ar spine is intact. There is no compression fracture. The proximal femurs are intact. I see no eviden ce of a hip fracture. Sacroiliac joints are intact. There are bilateral lateral pelvic sidewall enlar ged lymph nodes that measure up to 2.4 x 1.3 cm. Uterus is anteverted. There is low signal 2 cm mass on the uterine fundus consistent with a fibroid. The bladder distends smoothly. IMPRESSION: Complex left adnexal cystic mass probably arising from the left ovary is not changed in size and sign al pattern compared to the previous MR scan of 08/17/2020. Multiple enlarged pelvic and inguinal lymph nodes not significantly different than old exam and also stable compared to 05/13/2020 MR scan. No enlarging pelvic abnormality. Uterine fundal fibroid appear s stable.
--- NOTE | 2021-01-05 08:35 | CT ---
EXAMINATION TYPE: CT chest wo/w con DATE OF EXAM: 01/04/2021 COMPARISON: 09/13/2020, 05/16/2020, 12/03/2019. 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 TECHNIQUE: Contiguous axial scanning of the chest before and after the administration of 100 mL of Is ovue 300. Coronal/sagittal reconstructions performed. CT DLP: 960.1mGycm. Automatic exposure control utilized for a dose reduction. FINDINGS: Heart normal size without pericardial effusion. Ectatic aortic root at 3.9 cm and ascending aorta at 3.9 cm. Conventional arch vessel branching anato my. Subtle underlying nodularity suggested in the thyroid gland measuring up to 9 mm is unchanged. A 9 mm nodule central lateral right breast is unchanged compared to 12/03/2019 suggesting a benign etiology. Mediastinal lymph nodes measuring up to 1.9 cm in the right paratracheal region. 1.2 cm subcarinal versus 1.4 cm, previously. 1.2 cm right hilar versus 1.4 cm, previously. Bilateral axillary lymphadenopathy is largely unchanged measuring up to 2.2 cm on the left. Stable 1 cm right retrocrural lymph node. Lungs show no consolidation or pleural effusion. There is mild diffuse bronchial wall thickening that could reflect bronchitis or chronic asthma. In the upper abdomen, marianna hepatis lymph nodes measure up to 1.6 cm, unchanged. Portacaval lymph node measures 1.6 cm versus 1.8 cm, previously. Gastric hepatic ligament nodes unchanged. Numerous retroperitoneal lymph nodes measuring 1 cm and smaller are unchanged. Small calcified granulomas in the spleen. Stable benign 2.4 cm right upper pole renal cyst. Bones: Mild degenerative disc disease midthoracic spine. No osseous destructive process. IMPRESSION: 1. Thoracic lymphadenopathy including axillary, mediastinal, right hilar, and right retrocrural nodes measuring up to 2.2 cm are largely unchanged. Right hilar and subcarinal nodes are minimally smaller (1.2 cm versus 1.4 cm, previously). 2. Upper abdominal lymphadenopathy including portahepatic, portacaval, gastrohepatic ligament, and so me scattered retroperitoneal nodes are also not significantly changed. The portacaval lymph node is m inimally smaller at 1.6 cm versus 1.8 cm, previously.
== END | disposition home or self-care (01) ==
LOC: RADMRIMAIN 11:24
PROVIDERS: ATTEND Internal Medicine Hematology & Oncology
DX: C49.9 Malignant neoplasm of connective and soft tissue, unspecified (principal); R59.0 Localized enlarged lymph nodes; N83.8 Other noninflammatory disorders of ovary, fallopian tube and broad ligament; D25.9 Leiomyoma of uterus, unspecified
CPT/HCPCS: 82565; 84520; 71270; 72197; A9585; Q9967

== ENCOUNTER → 2021-04-11 | Outpatient (CLI) | payer BC, MEDICARE ==
--- NOTE | 2021-04-11 13:22 | CT ---
EXAMINATION TYPE: CT chest w con DATE OF EXAM: 04/11/2021 COMPARISON: 01/04/2021, 05/16/2020, 12/03/2019 HISTORY: 66-year-old female C40.0, malignant neoplasm connective tissue. Follow up per patient. Nodu les per patient TECHNIQUE: Contiguous axial scanning of the chest after the administration of 80 mL of Isovue 370. C oronal/sagittal reconstructions performed. CT DLP: 438.2mGycm. Automatic exposure control utilized for a dose reduction. FINDINGS: Heterogeneous thyroid gland suggests underlying nodules which can be further evaluated with dedicated thyroid ultrasound. Stable 8 mm posterior right breast nodule, axial image 19. Bilateral axillary lymph nodes, left greater than right redemonstrated, measuring up to 2.4 cm on the left and 1.7 cm on the right. Findings unchanged back to 12/03/2019. Pretracheal lymph node axial image 14 measures 1.6 cm and appears unchanged. Subcarinal lymph node 1 cm. Right hilar lymph node 1.4 cm, unchanged. Right retrocrural lymph node 8 mm, unchanged. Numerous borderline to nonenlarged upper abdominal lymph nodes measuring up to 8 mm gastrohepatic lig ament region and 2.2 cm at the marianna hepatis. Heart normal size without pericardial effusion. Borderline ectasia aortic root at 3.6 cm. Ectasia asc ending aorta 3.7 cm. Conventional arch vessel branching anatomy. Very mild centrilobular emphysema. No consolidation or pleural effusion. Calcified granulomas within the spleen and a stable 2.0 cm cortical cyst anterior upper pole right ki dney. Gallbladder surgically absent. Bones: Mild to moderate degenerative disc disease mid to lower thoracic spine. IMPRESSION: 1. Thoracic lymphadenopathy including axillary, pretracheal, right hilar, and right retrocrural nodes measuring up to 2.4 cm are unchanged. 2. Upper abdominal lymphadenopathy in the gastrohepatic ligament and marianna hepatic regions measuring up to 2.2 cm also unchanged. 3. Heterogeneous thyroid gland suggests underlying nodules. This can be further evaluated with thyroi d ultrasound.
== END | disposition home or self-care (01) ==
LOC: RADCTMAIN 11:37
PROVIDERS: ATTEND Surgery Surgical Oncology
DX: C49.9 Malignant neoplasm of connective and soft tissue, unspecified (principal); R59.1 Generalized enlarged lymph nodes; E07.89 Other specified disorders of thyroid
CPT/HCPCS: 82565; 84520; 71260; 36415; Q9967

== ENCOUNTER → 2021-04-15 | Outpatient (CLI) | payer BC, MEDICARE ==
--- NOTE | 2021-04-16 06:59 | MR ---
EXAMINATION TYPE: MR pelvis wo/w con DATE OF EXAM: 04/15/2021 COMPARISON: 01/04/2021 HISTORY: Neoplasm of connective tissue, left ovarian cyst, f/u soft tissue sarcoma left side CONTRAST: Standard multiplanar, multisequence MRI departmental protocol images were obtained without contrast a nd with 9 mL intravenous Gadavist gadolinium contrast. Multiplanar multiecho imaging of the pelvis without and with IV contrast. There is 6 cm complex cyst with fluid level in the left adnexal region and consistent with ovarian cy sts. The uterus is anteverted. There is nonenhancing 1.8 cm rounded area of low signal on the T1 imag es without much enhancement and consistent with fibroid on the anterior uterine fundus. There is no f ree fluid in the pelvis. Bladder distends smoothly. I see no evidence of pelvic lymphadenopathy. Ther e is no inguinal hernia. IMPRESSION: Complex left ovarian cyst. Uterine fibroid.
== END | disposition home or self-care (01) ==
LOC: RADMRIMAIN 14:13
PROVIDERS: ATTEND Surgery Surgical Oncology
DX: C49.9 Malignant neoplasm of connective and soft tissue, unspecified (principal); N83.202 Unspecified ovarian cyst, left side; D25.9 Leiomyoma of uterus, unspecified
CPT/HCPCS: 72197; A9585

== ENCOUNTER → 2021-04-20 | Outpatient (CLI) | payer BC, MEDICARE ==
[2021-04-20 12:35] LABS: Appearance,Urine Clear (Clear); Bilirubin,Urine Negative (Negative); Blood,Urine Negative (Negative); Color,Urine Light Yellow; Glucose,Urine (UA) Negative (Negative); Ketones,Urine Negative (Negative); Leukocyte Esterase,Urine Negative (Negative); Nitrite,Urine Negative (Negative); Protein,Urine Negative (Negative); Specific Gravity,Urine 1.014 (1.001-1.035); Urobilinogen,Urine <2.0 mg/dL (<2.0)
[2021-04-20 20:08] LABS: HCT 46.1 % (37.2-46.3); MCH 25.3 pg (27.0-32.0); MCHC 30.4 g/dL (32.0-37.0); MCV 83.4 fL (80.0-97.0); Mean Platelet Volume 10.6 fL (9.5-12.2); Platelet Count 401 X 10*3/uL (140-440); RBC 5.53 X 10*6/uL (4.10-5.20); RDW 20.8 % (11.5-14.5); WBC 37.83 X 10*3/uL (4.50-10.00)
[2021-04-20 21:18] LABS: Cancer Antigen 125 14.4 U/mL (0.0-30.1)
[2021-04-21 00:16] LABS: Albumin 4.2 g/dL (3.8-4.9); Albumin/Globulin Ratio 1.45 (1.60-3.17); Anion Gap 11.5 mmol/L (4.00-12.00); BUN/Creat Ratio 23.3 Ratio (12.00-20.00); Blood Urea Nitrogen 23.3 mg/dL (9.0-27.0); Calcium 9.9 mg/dL (8.7-10.3); Carbon Dioxide 26.5 mmol/L (21.6-31.8); Globulin 2.9 g/dL (1.6-3.3); Non-African American GFR(CKD) 58.7 (60.0-200.0); Potassium 4.2 mmol/L (3.5-5.5); Total Bilirubin 0.5 mg/dL (0.30-1.20); Total Protein 7.1 g/dL (6.2-8.2)
== END | disposition home or self-care (01) ==
LOC: LABWHC1 11:13
PROVIDERS: ATTEND Obstetrics & Gynecology Gynecologic Oncology
DX: R19.00 Intra-abdominal and pelvic swelling, mass and lump, unspecified site (principal)
CPT/HCPCS: 36415; 80053; 81003; 82378; 85027; 86304; 86850; 86900; 86901; 87086

== ENCOUNTER → 2021-05-10 | Outpatient (CLI) | payer BC, MEDICARE ==
[2021-05-11 03:11] LABS: Albumin 4.2 g/dL (3.8-4.9); Albumin/Globulin Ratio 1.31 (1.60-3.17); Anion Gap 12.4 mmol/L (10.00-18.00); BUN/Creat Ratio 20.5 Ratio (12.00-20.00); Blood Urea Nitrogen 20.5 mg/dL (9.0-27.0); Calcium 10.1 mg/dL (8.7-10.3); Carbon Dioxide 28.6 mmol/L (20.0-27.5); Globulin 3.2 g/dL (1.6-3.3); Non-African American GFR(CKD) 58.7 (60.0-200.0); Potassium 4.2 mmol/L (3.5-5.5); Total Bilirubin 0.3 mg/dL (0.30-1.20); Total Protein 7.4 g/dL (6.2-8.2)
== END | disposition home or self-care (01) ==
LOC: LABWHC1 13:35
PROVIDERS: ATTEND Obstetrics & Gynecology Gynecologic Oncology
DX: Z98.890 Other specified postprocedural states (principal)
CPT/HCPCS: 36415; 80053

== ENCOUNTER → 2021-06-07 | Outpatient (CLI) | payer BC, MEDICARE ==
--- NOTE | 2021-06-07 15:58 | US ---
EXAMINATION TYPE: US thyroid st tissue head/neck DATE OF EXAM: 06/07/2021 COMPARISON: CT chest 04/11/2021 CLINICAL HISTORY: 66-year-old female E04.1 Thyroid Nodule. Possible thyroid nodule visualized on CT TECHNIQUE: Multiple sonographic images of the thyroid gland are obtained. GLAND SIZE: Right Lobe: 4.4 x 1.8 x 1.6 cm Overall Parenchyma: heterogenous Left Lobe: 4.6 x 2.4 x 2.1 cm Overall Parenchyma: heterogeneous Isthmus Thickness: 0.5 cm NODULES RIGHT: # of nodules measured on right: 2 1. 1.9 X 1.3 x 1.5 cm, mid, solid or almost completely solid, hypoechoic nodule, which is wider jerad n tall, with smooth margins, without echogenic foci. Prior size: No prior US 2. 0.6 X 0.5 x 0.6 cm, upper, solid or almost completely solid, hypoechoic nodule, which is wider t lundy tall, with smooth margins, without echogenic foci. Prior size: No prior US LEFT: # of nodules measured on left: 1 1. 1.9 X 1.5 x 1.7 cm, mid, solid or almost completely solid, hypoechoic nodule, which is wider jerad n tall, with smooth margins, without echogenic foci. Prior size: No prior US There are chains of borderline sized lymph nodes on both sides of the neck. IMPRESSION: 1. Two, solid, TR4 nodules on the right, largest measuring 1.9 cm. FNA can be performed. 2. One solid 1.9 cm TR4 nodule on the left. FNA can be performed. 3. A chain of borderline enlarged lymph nodes down both sides of the neck. Clinically correlate. We n ote thoracic lymphadenopathy on the patient's 04/11/2021 CT chest.
== END | disposition home or self-care (01) ==
LOC: RADUSWWP 13:27
PROVIDERS: ATTEND Family Medicine
DX: E04.2 Nontoxic multinodular goiter (principal); R59.0 Localized enlarged lymph nodes
CPT/HCPCS: 76536

== ENCOUNTER → 2021-08-01 | Outpatient (CLI) | payer BC, MEDICARE ==
--- NOTE | 2021-08-01 20:06 | CT ---
EXAMINATION TYPE: CT chest wo con DATE OF EXAM: 08/01/2021 INDICATION: f/u nodules CT DLP: 638 mGy.cm Automated Exposure Control for Dose Reduction was Utilized. TECHNIQUE AND CONTRAST: Multiplanar CT scan of the chest without IV contrast administration. COMPARISON: CT dated 04/11/2021 FINDINGS: Stable 3 mm right lung base posterior nodule. Unremarkable lungs otherwise. No other definite lung no dule identified. Patent central airways. No pleural or pericardial effusion. No gross cardiomegaly. D ilated ascending aorta measuring up to 4.3 cm, please correlate with echocardiographic results. The p ulmonary trunk measures 2.9 cm. Coronary arterial calcifications. Persistent enlarged hilar, mediastinal and axillary lymph nodes measuring up to 2.4 cm in the left ax illa, 10 mm in subcarinal group and 17 mm in the right axilla. No progressive lymphadenopathy in the chest. Persistent hypodensity in the right thyroid gland, please correlate with thyroid ultrasound re sults. Stable splenic calcifications. The enlarged upper abdominal gastrohepatic, marianna hepatis, portacaval and superior retroperitoneal lymph nodes are also stable measuring up to 2.5 cm. Degenerative changes of the thoracic spine. No aggressive bone lesion. IMPRESSION: Persistent enlargement of the hilar, mediastinal, axillary and upper abdominal lymph nodes, grossly s table. No progressive lymphadenopathy in the chest or the upper abdomen. No new or progressive lung l esion. Incidental findings as described above.
--- NOTE | 2021-08-02 02:35 | MR ---
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 Marker placed. There is some soft tissue deformity related to resection of soft tissues over the lateral aspect of t he left ilium. There is a linear area of predominantly low signal posterior and lateral to the left i lium measuring 8 x 2.3 cm and consistent with scar tissue. There is central fluid component measuring 9 mm. The appearance is not changed compared to previous exam 04/15/2021. There is hysterectomy. There is no free fluid in the pelvis. Bladder distends smoothly. There is no evidence of a fracture. There are a few lateral side wall pelvic lymph nodes. The largest measures 3. 6 x 1.0 cm on the right pelvic sidewall. There are multiple enlarged inguinal lymph nodes that measur e up to 18 x 12 mm. The proximal femurs show fairly normal signal pattern. There is patchy red marrow signal in the proxi mal femurs. There is variable fatty marrow replacement in the lumbar spine. There is a 3.8 x 2 cm are a of increased signal on the proton density images in the right iliac bone this has low signal on T1. There is no cortical destruction. IMPRESSION: Linear area of decreased signal with central fluid along the posterior aspect left iliac bone in the soft tissues consistent with scar tissue and hematoma or seroma and not changed compared to exam. Pelvic and inguinal lymphadenopathy not significantly different than multiple previous exams. Lesion in the right iliac bone stable compared to old exams back to 02/13/2020 and suggestive of benig n etiology. There is hysterectomy and clearing of the multiple cysts on the left ovary compared to e old exam.
== END | disposition home or self-care (01) ==
LOC: RADCTMAIN 14:39
PROVIDERS: ATTEND Surgery Surgical Oncology
DX: C49.22 Malignant neoplasm of connective and soft tissue of left lower limb, including hip (principal); R91.1 Solitary pulmonary nodule; R59.0 Localized enlarged lymph nodes
CPT/HCPCS: 71250; 72195

== ENCOUNTER → 2022-01-31 | Outpatient (CLI) | payer BC, MEDICARE ==
--- NOTE | 2022-01-31 16:07 | CT ---
EXAMINATION TYPE: CT chest w con DATE OF EXAM: 01/31/2022 COMPARISON: 312 HISTORY: Hyperglycemia, history of sarcoma CT DLP: 451.8 mGycm, Automated exposure control for dose reduction was used. CONTRAST: Performed injected with 100 mL of Isovue 300. TECHNIQUE: Axial images were obtained at 5 mm thick sections. Reconstructed images are reviewed on [employer] computer in the coronal plane. FINDINGS: Thyroid is slightly heterogenous. No suspicious lung nodules or focal infiltrates are present. Punctate nodule at the right base is poo rly visualized but may remain present, series 4 image 47 There are multiple bilateral enlarged axillary lymph nodes. Some larger lymph nodes include a 1.4 cm lymph node on the left axilla and 1.2 cm lymph node on the right lung multiple smaller nodes. There is an enlarged peritracheal lymph node measuring 1.8 cm. The ascending aorta diameter at the level of the main pulmonary artery is 3.7 cm. The main pulmonary artery diameter at the bifurcation is 2.[address] sections are obtained through the upper abdomen. Scattered small lymph nodes are within th e periaortic region. Abdomen is otherwise unremarkable. No suspicious lung masses or subcutaneous tissue masses are otherwise evident. IMPRESSIONS: 1. Multiple bilateral axillary lymph nodes, some of which are enlarged, are present in bilateral axil la and pretracheal space. Consider PET/CT for additional evaluation.
== END | disposition home or self-care (01) ==
LOC: RADCTMAIN 10:33
PROVIDERS: ATTEND Surgery Surgical Oncology
DX: C49.9 Malignant neoplasm of connective and soft tissue, unspecified (principal); R73.9 Hyperglycemia, unspecified; R59.0 Localized enlarged lymph nodes
CPT/HCPCS: 82565; 84520; 71260; 36415; Q9967

== ENCOUNTER → 2022-02-02 | Outpatient (CLI) | payer BC, MEDICARE ==
--- NOTE | 2022-02-04 08:48 | MR ---
EXAMINATION TYPE: MR pelvis wo/w con DATE OF EXAM: 02/02/2022 COMPARISON: MR pelvis 04/15/2021, 01/04/2021, 08/17/2020, 05/13/2020. CLINICAL INDICATION:Female, 66 years old with history of C49.9 Malignant neoplasm of connective and s oft; [facility], TECHNIQUE: Triplane multisequence imaging was performed of the pelvis. Then the patient was given c ontrast/gadolinium, 9 cc of Gadavist and multiple post contrast sequences where obtained in three donnie carey. FINDINGS: Reproductive: Uterus/vagina/ovaries: Post surgical changes from hysterectomy and bilateral oophorectomy. Vaginal cu ff appears intact without suspicious focal lesion. No organized fluid collections. Bladder: Under distended, limiting evaluation. Bowel: Colonic diverticulosis without evidence for acute diverticulitis. Peritoneum: No free fluid. Stable bilateral pelvic lymph nodes the largest on the right external clementine c chain measuring 1 cm short axis with fatty hilum (series 601, image 25). No new masses or adenopath y. Vasculature: Unremarkable. Abdominal wall/soft tissues: Unremarkable. Musculoskeletal: Bone marrow signal is within normal signal intensity. IMPRESSION: 1. Postsurgical changes from hysterectomy and oophorectomy without evidence for residual disease or m etastasis within the pelvis. No organized fluid collections. 2. Stable prominent pelvic lymph nodes date back to 2019. No new suspicious adenopathy. 3. Colonic diverticulosis without evidence for acute diverticulitis.
== END | disposition home or self-care (01) ==
LOC: RADMRIMAIN 13:56
PROVIDERS: ATTEND Surgery Surgical Oncology
DX: C49.9 Malignant neoplasm of connective and soft tissue, unspecified (principal); K57.30 Diverticulosis of large intestine without perforation or abscess without bleeding; R59.0 Localized enlarged lymph nodes; Z98.890 Other specified postprocedural states
CPT/HCPCS: 72197; A9585

== ENCOUNTER → 2022-08-28 | Outpatient (CLI) | payer BC, MEDICARE ==
--- NOTE | 2022-08-28 12:45 | CT ---
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 CONTRAST: CT scan of the chest is performed without and with IV Contrast, patient injected with 80 mL of Isovue 300. FINDINGS: LUNGS: Scattered mild subpleural fibrotic change noted right lower lobe, right middle lobe The remain ing lungs are grossly clear, there is no concerning parenchymal mass or nodule identified. There is no pleural effusion or pneumothorax seen. The tracheobronchial tree is patent. MEDIASTINUM: Enlarged right paratracheal lymph node is again redemonstrated measuring 1.5 cm versus 1 .8 cm previously. There are subcentimeter low right paratracheal lymph nodes redemonstrated measuring up to 9 mm. Multiple subcentimeter AP window lymph nodes are seen. Subcarinal adenopathy measures 1. 2 cm unchanged from prior study.. No pericardial effusion is seen. Thoracic aorta is of normal travis iber. The heart is not enlarged. UPPER ABDOMEN: No significant abnormality appreciated. OTHER: Bilateral axillary adenopathy remains unchanged with the largest left-sided lymph node at 1.4 versus 1.4 cm. The largest right axillary lymph node measures 1 cm versus 1 cm. IMPRESSION: 1. No change in axillary or mediastinal adenopathy. 2. Scattered subpleural fibrosis. 3. No evidence for metastatic disease to the lungs.
== END | disposition home or self-care (01) ==
LOC: RADCTMAIN 11:22
PROVIDERS: ATTEND Surgery Surgical Oncology
DX: C49.9 Malignant neoplasm of connective and soft tissue, unspecified (principal); J84.10 Pulmonary fibrosis, unspecified
CPT/HCPCS: 82565; 84520; 71270; 36415; Q9967

== ENCOUNTER → 2022-09-12 | Outpatient (CLI) | payer BC, MEDICARE ==
--- NOTE | 2022-09-12 16:09 | MR ---
EXAMINATION TYPE: MR pelvis wo/w con DATE OF EXAM: 09/12/2022 COMPARISON: MR pelvis 02/20/2022. CLINICAL INDICATION:Female, 67 years old with history of C49.9 MALIGNANT NEOPLASM OF CONNECTIVE AND S OFT TI; Primary myxofibrosarcoma checkup TECHNIQUE: Triplane multisequence imaging was performed of the pelvis. IV Contrast: 9ml cc Gadavist FINDINGS: Reproductive: uterus is surgically absent.. The ovaries are not definitively visualized. Bilateral Bladder: Unremar kable. Bowel: Scattered colonic diverticula are present. Peritoneum: A small amount of free fluid in the pelvis. Lymph nodes: External iliac chain lymph nodes are redemonstrated on the right measuring similarly at 10 mm in short axis. A larger bore elongated lymph node in the right external iliac chain appears lar asiya measuring 16 x 4.2 cm, previously 13 x 3.7 cm and 16 mm in short axis. On the left external iliac chain lymph node measuring 12 mm in short axis appears similar in size. Right inguinal canal lymph nodes also appear enlarged when comparing to prior measuring up to 10 mm i nferior axis, previously 8 mm in short axis. Vasculature: Unremarkable. Musculoskeletal: Bone marrow signal is within normal signal intensity. Postcontrast enhancement of th e greater trochanters bilaterally. Abdominal wall/soft tissues: Unremarkable. IMPRESSION: 1. Posthysterectomy with oophorectomy. There is minimally increased in size right external iliac lym ph nodes when comparing to 02/02/2022. It is unclear whether there is superimposed infectious/inflammat ory process present on today's exam given the stability over multiple prior examinations until today. Alternatively slice selection could play a role. No new or enlarging lymph nodes are visualized. Con tinued attention on follow-up imaging of the lymph nodes is recommended. 2. Bilateral greater trochanter enhancement concerning for trochanter or ascites.
== END | disposition home or self-care (01) ==
LOC: RADMRIMAIN 14:10
DX: C49.9 Malignant neoplasm of connective and soft tissue, unspecified (principal); Z90.722 Acquired absence of ovaries, bilateral; Z90.710 Acquired absence of both cervix and uterus
CPT/HCPCS: 72197; A9585

== ENCOUNTER → 2023-05-01 | Outpatient (CLI) | payer BC, MEDICARE ==
[2023-05-01 12:11] LABS: African American GFR (CKD) 72 (>60 ml/min/1.73 sqM); Blood Urea Nitrogen 21 mg/dL (7-17); Non-African American GFR(CKD) 62 (>60 ml/min/1.73 sqM)
== END | disposition home or self-care (01) ==
LOC: RADCTMAIN 11:18
PROVIDERS: ATTEND Surgery Surgical Oncology
DX: C49.9 Malignant neoplasm of connective and soft tissue, unspecified (principal)
CPT/HCPCS: 82565; 84520

== ENCOUNTER → 2023-05-07 | Outpatient (CLI) | payer BC, MEDICARE ==
--- NOTE | 2023-05-01 12:53 | CT ---
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 CT DLP: 602.30 mGycm Automated exposure control for dose reduction was used. TECHNIQUE: CT scan of the chest is performed with IV Contrast, patient injected with 100 mL of Isovue 300. MIP Images are created on CT scanner and reviewed. 3D reconstructed images are created on an independent workstation and reviewed. FINDINGS: LUNGS: The lungs are grossly clear, there is no concerning parenchymal mass or nodule identified. T here is no pleural effusion or pneumothorax seen. The tracheobronchial tree is patent. MEDIASTINUM, AXILLARY AND HILAR REGIONS: There are multiple prominent and slightly enlarged lymph nod es within the axillary regions bilaterally measuring up to 1.3 cm on the left. There is no mediastina l or hilar lymphadenopathy. These findings are not significantly changed since the previous examinati on. 0.9 cm right thyroid nodule was not clearly present on the previous examination. Likely unchanged left thyroid nodules. OTHER: No additional significant abnormality is seen. IMPRESSION: 1. Unchanged axillary adenopathy. 2. Thyroid nodules as above. Thyroid ultrasound recommended on a nonemergent basis.
--- NOTE | 2023-05-08 12:41 | MR ---
EXAMINATION TYPE: MR pelvis wo/w con DATE OF EXAM: 05/07/2023 10:10 PM CLINICAL INDICATION:Female, 68 years old with history of C49.9; [facility], Primary myxofibrosarcoma checkup COMPARISON: 09/12/2022. TECHNIQUE: Triplane multisequence imaging was performed of the pelvis. IV Contrast: 7.5 cc Gadavist FINDINGS: Reproductive: uterus is surgically absent. The ovaries are not definitively visualized. Urinary Bladder: Unremarkable. Bowel: Scattered colonic diverticula are present. Peritoneum: A small amount of free fluid in the pelvis. Lymph nodes: * Decrease in and bilateral inguinal/external iliac lymph nodes measuring up to 9 mm in short axis C T of the right and 10 mm on the left. External iliac chain lymph nodes are redemonstrated on the right measuring similarly at 10 mm in shor t axis. A larger bore elongated lymph node in the right external iliac chain remain present measuring 3.2 x 1 .2 cm, previously 4.2 x 1.6 cm on the right, associated 2.6 x 1.1, previously 3.0 x 1.2 cm. Area of postsurgical change near the left lateral flank/superficial to the gluteus tracey near its o rigin with susceptibility artifact. No abnormal enhancement or increasing soft tissue mass. Vasculature: Unremarkable. Musculoskeletal: Bone marrow signal is within normal signal intensity. Postcontrast enhancement of th e greater trochanters bilaterally. Abdominal wall/soft tissues: Unremarkable. IMPRESSION: 1. Post surgical bed in the left lateral flank remains without evidence for mass or abnormal postcon trast enhancement. 2. Posthysterectomy with oophorectomy. The lymph nodes have decreased in size in the pelvis.
== END | disposition home or self-care (01) ==
LOC: RADMRIMAIN 21:15
PROVIDERS: ATTEND Surgery Surgical Oncology
DX: C49.9 Malignant neoplasm of connective and soft tissue, unspecified (principal); E04.2 Nontoxic multinodular goiter; R59.0 Localized enlarged lymph nodes; Z98.890 Other specified postprocedural states; Z90.722 Acquired absence of ovaries, bilateral
CPT/HCPCS: 71270; 72197; A9585

== ENCOUNTER → 2024-02-04 | Outpatient (CLI) | payer MEDICARE ==
[2024-02-04 14:53] LABS: African American GFR (CKD) 62 (>60 ml/min/1.73 sqM); Blood Urea Nitrogen 25 mg/dL (7-17); Non-African American GFR(CKD) 54 (>60 ml/min/1.73 sqM)
--- NOTE | 2024-02-08 11:54 | CT ---
EXAMINATION TYPE: CT chest w con CT DLP: 311.0 mGycm, Automated exposure control for dose reduction was used. 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 TECHNIQUE: Multiple axial images were obtained through the chest. Sagittal and coronal reformats were created for review. Contrast used:80 mL of Isovue 300 with IV Contrast (None if empty) Oral contrast used: (None if empty) FINDINGS: LUNGS/ PLEURA: No focal consolidation, pneumothorax or pleural effusion. No new or enlarging pulmonar y nodules. AIRWAY: Patent and unremarkable. HEART: Size within normal limits. MEDIASTINUM: No gross evidence of adenopathy. Similar prominent the stem lymph nodes including right low paratracheal measuring up to 12 mm short axis. VASCULATURE: No aortic aneurysm. MUSCULOSKELETAL: No acute osseous abnormalities SOFT TISSUES/LYMPH NODES: Similar bilateral axillary lymphadenopathy. Similar bilateral intraglandula r lymph nodes in the breasts. Similar thyroid gland nodules. LOWER NECK: No significant findings. UPPER ABDOMEN: Right renal simple appearing cyst. Scattered calcified granulomas in the spleen simila r prior. IMPRESSION: Similar adenopathy within the axilla and mediastinum. No new or enlarging masses.
== END | disposition home or self-care (01) ==
LOC: RADCTMAIN 14:10
PROVIDERS: ATTEND Internal Medicine Hematology & Oncology
DX: C91.10 Chronic lymphocytic leukemia of B-cell type not having achieved remission
CPT/HCPCS: 36415; 71260; 82565; 84520

== ENCOUNTER → 2024-02-05 | Outpatient (CLI) | payer MEDICARE ==
--- NOTE | 2024-02-06 14:42 | MR ---
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 IV Contrast: 7.5 cc Gadavist FINDINGS: FINDINGS: Reproductive: uterus is surgically absent. The ovaries are not definitively visualized. Urinary Bladder: Unremarkable. Bowel: Scattered colonic diverticula are present. Peritoneum: A small amount of free fluid in the pelvis. Lymph nodes: Elongated lymph node in the right external iliac chain remain present measuring measures similarly at 13 mm in short axis, right iliacus muscle anterior lymph node measures similarly at 6 mm in short a xis. Series 501 image 31. Left external iliac chain lymph node measuring up to 10 mm similar to prior versus slightly smaller. Area of postsurgical change near the left lateral flank/superficial to the gluteus tracey near its o rigin with susceptibility artifact. No abnormal enhancement or increasing soft tissue mass. Vasculature: Unremarkable. Musculoskeletal: Bone marrow signal is within normal signal intensity. Postcontrast enhancement of th e greater trochanters bilaterally. There is curvilinear sclerosis of the femoral heads. Probable rig vertebral body hemangioma in the L3 vertebrae. Transitional L5 vertebrae. Ht Abdominal wall/soft tissues: Unremarkable. IMPRESSION: 1. Post surgical changes in the left lateral flank remains without evidence for mass or abnormal pos tcontrast enhancement. 2. Posthysterectomy with oophorectomy. The lymph nodes are not significantly changed compared to imm ediate prior 05/07/2023 3. Bilateral avascular necrosis of the femoral heads.
== END | disposition home or self-care (01) ==
LOC: RADMRIMAIN 13:34
PROVIDERS: ATTEND Internal Medicine Hematology & Oncology
DX: C91.10 Chronic lymphocytic leukemia of B-cell type not having achieved remission
CPT/HCPCS: 72197

== ENCOUNTER → 2024-08-10 | Outpatient (CLI) | payer MEDICARE ==
[2024-08-10 14:36] LABS: African American GFR (CKD) 68 (>60 ml/min/1.73 sqM); Blood Urea Nitrogen 40 mg/dL (7-17); Non-African American GFR(CKD) 59 (>60 ml/min/1.73 sqM)
--- NOTE | 2024-08-10 15:57 | CT ---
EXAMINATION TYPE: CT chest w con CT DLP: 590 mGycm, Automated exposure control for dose reduction was used. DATE OF EXAM: 08/10/2024 3:23 PM COMPARISON: CT chest 02/04/2024, 05/01/2023, 08/28/2022, 01/31/2022, 08/01/2021 CLINICAL INDICATION:Female, 69 years old with history of C91.10 LEUKEMIA; LUNG CANCER; [facility], 5 year fo llow-up Lung Ca. TECHNIQUE: Multiple axial images were obtained through the chest following the administration of 100 cc of Isovue 300. . Coronal and sagittal reformats reviewed. FINDINGS: LUNGS/ PLEURA: No focal consolidation, pneumothorax or pleural effusion. Stable right lower lobe 5 mm pulmonary nodule (series 8, image 55). No new or enlarging pulmonary nodules. Minimal subsegmental a telectasis within the bilateral lower lobes and lingula. AIRWAY: Patent and unremarkable. HEART: Size within normal limits.No pericardial effusion. Mitral annulus calcifications. Small jenkins ry artery calcifications. MEDIASTINUM: Similar enlarged mediastinal and right hilar adenopathy. Stable right hilar 1.4 cm lymph node (series 3, image 29). Stable pretracheal 1.6 cm lymph node (series 3, image 19). Stable subcari nal lymph node measuring 1.3 cm short axis (series 3, image 31). VASCULATURE: No aortic aneurysm. MUSCULOSKELETAL: No acute osseous abnormalities. Removal left lateral fifth rib fracture. Minimal mul tilevel degenerative disc disease. SOFT TISSUES/LYMPH NODES: Similar bilateral axillary lymphadenopathy. Similar bilateral intraglandula r lymph nodes in the breasts. LOWER NECK: Similar multinodular hypodense thyroid gland. UPPER ABDOMEN: Right renal simple appearing cyst. Scattered calcified granulomas in the spleen simila r prior. Intra and extra hepatic biliary ductal dilatation redemonstrated consistent with postcholecy stectomy physiology. Similar enlarged gastrohepatic lymph nodes with largest measuring 1.8 cm short a xis (series 3, image 57). IMPRESSION: Overall stable examination with no significant change in mediastinal, bilateral axillary, right hilar , and gastrohepatic lymphadenopathy. [facility], , 08/10/2024 3:54 PM
== END | disposition home or self-care (01) ==
LOC: RADCTMAIN 13:33
PROVIDERS: ATTEND Internal Medicine Hematology & Oncology
DX: C91.10 Chronic lymphocytic leukemia of B-cell type not having achieved remission (principal); R22.42 Localized swelling, mass and lump, left lower limb; Z71.3 Dietary counseling and surveillance; D45 Polycythemia vera; C34.82 Malignant neoplasm of overlapping sites of left bronchus and lung
CPT/HCPCS: 82565; 84520; 71260; 36415; Q9967

== ENCOUNTER → 2024-08-11 | Outpatient (CLI) | payer MEDICARE ==
--- NOTE | 2024-08-11 20:04 | MR ---
EXAMINATION TYPE: MR pelvis wo/w con DATE OF EXAM: 08/11/2024 2:35 PM COMPARISON: MRI brain and 424 10/05/2022.. CLINICAL INDICATION: Female, 69 years old with history of C34.82 LUNG CAN, C91.10 LEUKEMIA R22.42 Z71 .3 D45; [facility], F/U Post tumor resection. TECHNIQUE: Triplane multisequence imaging was performed of the pelvis. IV Contrast: 7 mL Gadobutrol FINDINGS: Reproductive: uterus is surgically absent. The ovaries are not definitively visualized. Urinary Bladder: Unremarkable. Bowel: Scattered colonic diverticula are present. Peritoneum: No free fluid identified.. Lymph nodes: Lymph nodes in the external iliac chain measuring up to 15 mm in today's exam on the right colon the left previously 12 and 10 respectively. Stable retroperitoneal lymph nodes seen along the aorta. Stable lymph node in the right renal/. The r ight kidney is not definitively visualized/in the [id number]. Area of postsurgical change near the left lateral flank/superficial to the gluteus tracey near its o rigin with susceptibility artifact. No abnormal enhancement or increasing soft tissue mass. Vasculature: Unremarkable. Musculoskeletal: Bone marrow signal is within normal signal intensity. Postcontrast enhancement of th e greater trochanters bilaterally. There is curvilinear sclerosis of the femoral heads images similar to prior. No subchondral collapse identified. Probable vertebral body hemangioma in the L3 vertebrae . Transitional L5 vertebrae. Abdominal wall/soft tissues: Unremarkable. IMPRESSION: 1. Similar Post surgical changes in the left lateral flank remains without evidence for mass or abno rmal postcontrast enhancement. 2. Posthysterectomy with oophorectomy. 3. Mild increase in short axis size of the lymph nodes along the external iliac chains measuring up to 15 mm in the right and 11 on the left. Continued surveillance recommended. 3. Bilateral avascular necrosis of the femoral heads. [facility], , 08/11/2024 8:02 PM
== END | disposition home or self-care (01) ==
LOC: RADMRIMAIN 13:32
PROVIDERS: ATTEND Internal Medicine Hematology & Oncology
DX: C34.82 Malignant neoplasm of overlapping sites of left bronchus and lung (principal); C91.10 Chronic lymphocytic leukemia of B-cell type not having achieved remission; R22.42 Localized swelling, mass and lump, left lower limb; Z71.3 Dietary counseling and surveillance; D45 Polycythemia vera
CPT/HCPCS: 72197; A9585